=== PATIENT | female | born 1945 | race African-American/Black ===

== ENCOUNTER 2017-10-30 16:47 | Emergency (ER) | payer MEDICARE, MEDICAID ==
[~2017-10-30] VITALS: Ht 170.2 cm; Wt 99.0 kg
[~2017-10-30 16:47] MED LIST: ASPI-1159 PO; GLYB5TAB7 PO; MELO-105 PO; METF500T PO; SIMV20TA6 PO; SOTA80TA PO
[2017-10-30 16:53] VITALS: BP 140/90
[2017-10-30 18:42] LABS: HEMATOCRIT. 39.7 % (36.0-48.0); HEMOGLOBIN. 12.7 g/dL (12.0-16.0); MEAN CORPUSCULAR HEMOGLOBIN 24.7 pg (28.0-32.0); MEAN CORPUSCULAR VOLUME 77.1 fL (81.0-99.0); MEAN PLATELET VOLUME 9.1 fl (7.4-10.4); PLATELET 208 x1000/uL (130-400); RED BLOOD CELL COUNT 5.15 mill/uL (4.2-5.4); RED CELL DISTRIBUTION WIDTH 16.6 % (11.6-14.6)
[2017-10-30 18:45] LABS: CHLORIDE 107 mEq/L (98-107)
[2017-10-30 19:03] LABS: PLATELET ESTIMATE NORMAL
== END 2017-10-30 19:31 | disposition home or self-care (01) ==
LOC: ER 16:47
DX: R60.0 Localized edema (principal); E78.00 Pure hypercholesterolemia, unspecified; E11.9 Type 2 diabetes mellitus without complications; I11.0 Hypertensive heart disease with heart failure; Z88.0 Allergy status to penicillin
CPT/HCPCS: 36415; 80053; 82962; 85025; 93971; 99285

== ENCOUNTER 2021-01-08 10:06 | Inpatient (IN) | payer MEDICARE, MEDICAID ==
[~2021-01-08] VITALS: Ht 170.2 cm; Wt 95.9 kg
[~2021-01-08 10:06] MED LIST changes: -ASPI-1159 PO; +ASPI-1497 PO; +SIMV-43 PO; -SIMV20TA6 PO
[2021-01-08] MEDS ORDERED: KETOROLAC 30MG/ML VIAL IV STA (10:35)
[2021-01-08] MEDS ORDERED: CLINDAMYCIN 600 MG in DEXTROSE 5% WATER 50 ML IV ONE (10:45)
[2021-01-08] MEDS ORDERED: METRONIDAZOLE 500 MG PREMIX 100 ML IV ONE (10:45)
[2021-01-08] MEDS ORDERED: CLINDAMYCIN 600MG PREMIX 50 ML IV NR (11:00)
[2021-01-08 11:51] LABS: BASOPHILS % 0.6 % (0.0-2.0); CHLORIDE 103 mEq/L (98-107); EOSINOPHILS % 0.3 % (0.0-5.0); HEMOGLOBIN. 13.2 g/dL (12.0-16.0); LYMPHOCYTES % 11.4 % (20.0-50.0); MEAN CORPUSCULAR HEMOGLOBIN 25.4 pg (28.0-32.0); MEAN CORPUSCULAR VOLUME 77.2 fL (81.0-99.0); MEAN PLATELET VOLUME 9.3 fl (7.4-10.4); MONOCYTES % 11.7 % (2.0-8.0); PLATELET 276 x1000/uL (130-400); RED BLOOD CELL COUNT 5.18 mill/uL (4.2-5.4); RED CELL DISTRIBUTION WIDTH 15.8 % (11.6-14.6)
[2021-01-08 11:57] LABS: INR 1.1; PARTIAL THROMBOPLASTIN TIME 29.3 sec (23.4-31.0); PROTHROMBIN TIME 11.4 sec (9.6-11.0)
[2021-01-08] MEDS ORDERED: ACETAMINOPHEN 325MG TABLET PO PRN (14:30)
[2021-01-08] MEDS ORDERED: DEXTROSE 50% WATER 50ML SYRINGE IV PRN (14:30)
[2021-01-08] MEDS ORDERED: ONDANSETRON HCL 4MG/2ML INJ IV PRN (14:30)
[2021-01-08] MEDS ORDERED: VANCOMYCIN 1500MG in DEXTROSE 5% WATER 250ML IV NR ×2 (15:00→18:30)
[2021-01-08] MEDS ORDERED: IOHEXOL-300 100 ML BOTTLE ONE (15:22)
[2021-01-08 16:00] VITALS: BP 109/62
[2021-01-08] MEDS ORDERED: SODIUM CHLORIDE 0.9% 1,000 ML IV ONE (16:00)
[2021-01-08 16:41] VITALS: BP 109/62
[2021-01-08] MEDS: BLOOD SUGAR DIAGNOSTIC STRIP TEST SCH ×2 (16:49→20:38)
[2021-01-08] MEDS: LEVOFLOXACIN 500MG PREMIX 100 ML IV SCH (17:43)
[2021-01-08 20:00] VITALS: BP 125/94
[2021-01-08] MEDS: ATORVASTATIN CALCIUM 20MG TABLET PO SCH (20:39)
[2021-01-08] MEDS: ENOXAPARIN 30MG/0.3ML SYR SUBCUT SCH (20:39)
[2021-01-08] MEDS: SOTALOL HCL 80MG TABLET PO SCH (21:40)
[2021-01-08] MEDS: INSULIN LISPRO 100 UNITS/ML SUBCUT SCH (21:40)
[2021-01-09] VITALS: BP 101/68
[2021-01-09 04:00] VITALS: BP 108/39
[2021-01-09] MEDS: BLOOD SUGAR DIAGNOSTIC STRIP TEST SCH ×4 (06:07→20:54)
[2021-01-09] MEDS: INSULIN LISPRO 100 UNITS/ML SUBCUT SCH ×4 (06:07→21:00)
[2021-01-09 06:42] LABS: HEMATOCRIT. 38.5 % (36.0-48.0); HEMOGLOBIN. 12.2 g/dL (12.0-16.0); MEAN CORPUSCULAR VOLUME 78.8 fL (81.0-99.0); MEAN PLATELET VOLUME 9.4 fl (7.4-10.4); PLATELET 270 x1000/uL (130-400); RED BLOOD CELL COUNT 4.88 mill/uL (4.2-5.4)
[2021-01-09 07:59] LABS: CHLORIDE 104 mEq/L (98-107)
[2021-01-09 08:00] VITALS: BP 125/60
[2021-01-09] MEDS: ENOXAPARIN 30MG/0.3ML SYR SUBCUT SCH ×2 (08:19→20:33)
[2021-01-09] MEDS: ASPIRIN 81MG TABLET PO SCH (08:19)
[2021-01-09] MEDS: SOTALOL HCL 80MG TABLET PO SCH ×2 (08:19→20:32)
[2021-01-09] MEDS: TRAMADOL 50MG TABLET PO PRN (11:09)
[2021-01-09 12:00] VITALS: BP 120/60
[2021-01-09 14:17] LABS: PLATELET ESTIMATE NORMAL
[2021-01-09] MEDS ORDERED: VANCOMYCIN 1 G PREMIX 200 ML IV SCH (15:00)
[2021-01-09 16:00] VITALS: BP 115/59
[2021-01-09] MEDS ORDERED: TETANUS AND DIPHTHERIA TOX/PF 0.5ML SYR (ADULT) IM ONE (16:30)
[2021-01-09] MEDS: LEVOFLOXACIN 500MG PREMIX 100 ML IV SCH (17:50)
[2021-01-09] MEDS: METRONIDAZOLE 500MG TABLET PO SCH (17:50)
[2021-01-09 20:00] VITALS: BP 134/74
[2021-01-09] MEDS: ATORVASTATIN CALCIUM 20MG TABLET PO SCH (20:32)
[2021-01-10] VITALS: BP 123/64
[2021-01-10 04:00] VITALS: BP 121/94
[2021-01-10 06:22] LABS: CHLORIDE 107 mEq/L (98-107)
[2021-01-10] MEDS: BLOOD SUGAR DIAGNOSTIC STRIP TEST SCH ×4 (06:30→20:11)
[2021-01-10] MEDS: INSULIN LISPRO 100 UNITS/ML SUBCUT SCH ×4 (06:37→20:11)
[2021-01-10 06:46] LABS: HEMATOCRIT. 36.7 % (36.0-48.0); MEAN CORPUSCULAR HEMOGLOBIN 25.3 pg (28.0-32.0); MEAN CORPUSCULAR VOLUME 77.1 fL (81.0-99.0); MEAN PLATELET VOLUME 9.4 fl (7.4-10.4); PLATELET 303 x1000/uL (130-400); RED BLOOD CELL COUNT 4.76 mill/uL (4.2-5.4); RED CELL DISTRIBUTION WIDTH 15.8 % (11.6-14.6)
[2021-01-10 08:00] VITALS: BP 123/65
[2021-01-10] MEDS ORDERED: NALOXONE HCL 0.4MG/ML VIAL IV PRN (08:15)
[2021-01-10] MEDS: SOTALOL HCL 80MG TABLET PO SCH ×2 (09:00→20:10)
[2021-01-10] MEDS: METRONIDAZOLE 500MG TABLET PO SCH ×2 (09:27→20:10)
[2021-01-10] MEDS: ASPIRIN 81MG TABLET PO SCH (09:27)
[2021-01-10] MEDS: ENOXAPARIN 30MG/0.3ML SYR SUBCUT SCH ×2 (09:28→20:12)
[2021-01-10 12:00] VITALS: BP 127/66
[2021-01-10 13:18] LABS: PLATELET ESTIMATE 1+
[2021-01-10] MEDS: TRAMADOL 50MG TABLET PO PRN (14:00)
[2021-01-10 16:00] VITALS: BP 108/64
[2021-01-10] MEDS: LEVOFLOXACIN 500MG PREMIX 100 ML IV SCH (16:44)
[2021-01-10 20:00] VITALS: BP 101/98
[2021-01-10] MEDS: ATORVASTATIN CALCIUM 20MG TABLET PO SCH (20:10)
[2021-01-10] MEDS: INSULIN GLARGINE UD 100 UNITS/ML SYR SUBCUT SCH (22:19)
[2021-01-11] VITALS: BP 106/86
[2021-01-11 04:00] VITALS: BP 121/57
[2021-01-11] MEDS: INSULIN LISPRO 100 UNITS/ML SUBCUT SCH ×4 (07:10→20:23)
[2021-01-11 08:00] VITALS: BP 113/56
[2021-01-11] MEDS: ASPIRIN 81MG TABLET PO SCH (09:16)
[2021-01-11] MEDS: METRONIDAZOLE 500MG TABLET PO SCH ×2 (09:16→20:22)
[2021-01-11] MEDS: SOTALOL HCL 80MG TABLET PO SCH ×2 (09:16→20:23)
[2021-01-11] MEDS: ENOXAPARIN 30MG/0.3ML SYR SUBCUT SCH ×2 (09:17→20:23)
[2021-01-11 09:35] LABS: BASOPHILS % 0.8 % (0.0-2.0); EOSINOPHILS % 0.6 % (0.0-5.0); HEMATOCRIT. 38.9 % (36.0-48.0); LYMPHOCYTES % 30.4 % (20.0-50.0); MEAN CORPUSCULAR HEMOGLOBIN 25.5 pg (28.0-32.0); MEAN CORPUSCULAR VOLUME 76.1 fL (81.0-99.0); MEAN PLATELET VOLUME 8.8 fl (7.4-10.4); NEUTROPHILS % 55.2 % (40.0-76.0); PLATELET 384 x1000/uL (130-400); RED BLOOD CELL COUNT 5.11 mill/uL (4.2-5.4); RED CELL DISTRIBUTION WIDTH 15.9 % (11.6-14.6)
[2021-01-11 09:45] LABS: CHLORIDE 106 mEq/L (98-107)
[2021-01-11 12:00] VITALS: BP 118/68
[2021-01-11] MEDS: BLOOD SUGAR DIAGNOSTIC STRIP TEST SCH ×3 (12:23→20:23)
[2021-01-11 16:00] VITALS: BP 110/56
[2021-01-11] MEDS: LEVOFLOXACIN 500MG PREMIX 100 ML IV SCH (17:33)
[2021-01-11 20:00] VITALS: BP 129/67
[2021-01-11] MEDS: ATORVASTATIN CALCIUM 20MG TABLET PO SCH (20:22)
[2021-01-11] MEDS: INSULIN GLARGINE UD 100 UNITS/ML SYR SUBCUT SCH (21:39)
[2021-01-12] VITALS: BP 125/60
[2021-01-12 04:00] VITALS: BP 135/69
[2021-01-12] MEDS: BLOOD SUGAR DIAGNOSTIC STRIP TEST SCH ×2 (06:27→11:40)
[2021-01-12] MEDS: INSULIN LISPRO 100 UNITS/ML SUBCUT SCH ×2 (06:27→12:49)
[2021-01-12 08:00] VITALS: BP 129/61
[2021-01-12] MEDS: SOTALOL HCL 80MG TABLET PO SCH (08:57)
[2021-01-12] MEDS: ASPIRIN 81MG TABLET PO SCH (08:57)
[2021-01-12] MEDS: METRONIDAZOLE 500MG TABLET PO SCH (08:57)
[2021-01-12] MEDS: ENOXAPARIN 30MG/0.3ML SYR SUBCUT SCH (08:57)
[2021-01-12] MEDS ORDERED: LEVOFLOXACIN 500MG TABLET PO SCH (11:00)
[2021-01-12 12:00] VITALS: BP 125/69
[2021-01-12] MEDS ORDERED: METR-167 PO (12:26)
== END 2021-01-12 16:25 | disposition home health service (06) | DRG 603 ==
LOC: EDBEDREQ 10:50 → ER 11:00 → 7EST 13:10 → EDBEDREQ 13:16 → EDBEDREQSVC 13:16 → ENRESERV 13:53
PROVIDERS: ADMIT Specialist; ATTEND Specialist
DX: L02.214 Cutaneous abscess of groin (principal); E11.9 Type 2 diabetes mellitus without complications; I25.10 Atherosclerotic heart disease of native coronary artery without angina pectoris; I48.0 Paroxysmal atrial fibrillation; K76.0 Fatty (change of) liver, not elsewhere classified; E78.5 Hyperlipidemia, unspecified; I10 Essential (primary) hypertension; J44.9 Chronic obstructive pulmonary disease, unspecified; B96.4 Proteus (mirabilis) (morganii) as the cause of diseases classified elsewhere; E66.9 Obesity, unspecified; F17.200 Nicotine dependence, unspecified, uncomplicated; N76.89 Other specified inflammation of vagina and vulva; B95.2 Enterococcus as the cause of diseases classified elsewhere; B96.20 Unspecified Escherichia coli [E. coli] as the cause of diseases classified elsewhere; I25.2 Old myocardial infarction; Z82.49 Family history of ischemic heart disease and other diseases of the circulatory system; Z87.11 Personal history of peptic ulcer disease; Z88.0 Allergy status to penicillin; Z79.899 Other long term (current) drug therapy; Z79.82 Long term (current) use of aspirin; Z79.84 Long term (current) use of oral hypoglycemic drugs; Z71.6 Tobacco abuse counseling; Z68.33 Body mass index [BMI] 33.0-33.9, adult
CPT/HCPCS: 36415; 74177; 80048; 80053; 82962; 83036; 85025; 87070; 87077; 87186; 90714; 93970; 99285; C1893; J1650; J1815; J1885; J1956; J3370; J3490; J7030; J7040; J7060; Q9967

== ENCOUNTER 2022-08-23 22:41 | Inpatient (IN) | payer MEDICARE, MEDICAID ==
[~2022-08-23] VITALS: Ht 170.2 cm; Wt 99.3 kg
[~2022-08-23 22:41] MED LIST changes: -MELO-105 PO
[2022-08-23 23:36] LABS: BASOPHILS % 1.3 % (0.0-2.0); EOSINOPHILS % 0.1 % (0.0-5.0); HEMATOCRIT. 42.5 % (36.0-48.0); HEMOGLOBIN. 13.9 g/dL (12.0-16.0); LYMPHOCYTES % 30.4 % (20.0-50.0); MEAN CORPUSCULAR HEMOGLOBIN 25.6 pg (28.0-32.0); MEAN CORPUSCULAR VOLUME 78.5 fL (81.0-99.0); MONOCYTES % 8.2 % (2.0-8.0); PLATELET 272 x1000/uL (130-400); RED BLOOD CELL COUNT 5.42 mill/uL (4.2-5.4); RED CELL DISTRIBUTION WIDTH 16.3 % (11.6-14.6)
[2022-08-23 23:45] LABS: CHLORIDE 105 mEq/L (98-107)
[2022-08-24] MEDS ORDERED: SODIUM CHLORIDE 0.9% 1,000 ML IV ONE (01:45)
[2022-08-24] MEDS ORDERED: LEVOFLOXACIN 750MG PREMIX 150 ML IV ONE (01:45)
[2022-08-24] MEDS ORDERED: IPRATROPIUM/ALBUTEROL 0.5-3(2.5)MG/3ML NEB HHN PRN (09:45)
[2022-08-24] MEDS ORDERED: ONDANSETRON HCL 4MG/2ML INJ IV PRN (09:45)
[2022-08-24] MEDS ORDERED: ACETAMINOPHEN 325MG TABLET PO PRN (09:45)
[2022-08-24] MEDS ORDERED: CLONIDINE 0.1MG TABLET PO PRN (09:45)
[2022-08-24] MEDS ORDERED: DIPHENHYDRAMINE 50MG/ML VIAL IV PRN (09:45)
[2022-08-24] MEDS ORDERED: ATOR20TA65 PO (13:06)
[2022-08-24] MEDS ORDERED: SITA1TAB6 MT (13:07)
[2022-08-24] MEDS ORDERED: GLIM1TAB PO (13:08)
[2022-08-24] MEDS ORDERED: FERR325T30 PO (13:09)
[2022-08-24] MEDS ORDERED: TRAM50TA3 PO (13:12)
[2022-08-24] MEDS ORDERED: DEXTROSE 50% WATER 50ML SYRINGE IV PRN (13:45)
[2022-08-24 13:47] VITALS: BP 159/89
[2022-08-24] MEDS ORDERED: *PATIENT'S OWN MEDICATION STORAGE XX SCH (15:30)
[2022-08-24 16:00] VITALS: BP 171/75
[2022-08-24] MEDS ORDERED: LOSARTAN POTASSIUM 100 MG TABLET PO NR (16:30)
[2022-08-24] MEDS ORDERED: HYDRALAZINE HCL 25MG TABLET PO PRN (16:30)
[2022-08-24] MEDS: AMLODIPINE 10MG TABLET PO SCH (16:32)
[2022-08-24] MEDS: BLOOD SUGAR DIAGNOSTIC STRIP TEST SCH ×2 (16:40→21:00)
[2022-08-24] MEDS: INSULIN LISPRO 100 UNITS/ML SUBCUT SCH ×2 (17:10→23:03)
[2022-08-24 17:25] LABS: T4 FREE 1.04 ng/dL (0.76-1.46)
[2022-08-24 20:00] VITALS: BP_SYST 121; BP_SYST 156; BP_DIAS 64; BP_DIAS 74
[2022-08-25] VITALS: BP 136/79
[2022-08-25] MEDS: SENNOSIDES 8.6MG TABLET PO PRN (00:37)
[2022-08-25 02:46] LABS: CLARITY URINE CLEAR (CLEAR); COLOR URINE YELLOW (YELLOW); KETONES URINE 1+ (NEGATIVE); LEUKOCYTE ESTERASE URINE TRACE (NEGATIVE); NITRITE URINE NEGATIVE (NEGATIVE); OCCULT BLOOD URINE NEGATIVE (NEGATIVE); PH URINE 6.5 (4.5-8.0); PROTEIN URINE NEGATIVE (NEGATIVE); SPECIFIC GRAVITY URINE 1.016 (1.005-1.030); UROBILINOGEN URINE 0.2 E.U./dL (0.2-1.0)
[2022-08-25 04:00] VITALS: BP 145/78
[2022-08-25] MEDS: BLOOD SUGAR DIAGNOSTIC STRIP TEST SCH ×4 (06:32→21:00)
[2022-08-25] MEDS: INSULIN LISPRO 100 UNITS/ML SUBCUT SCH ×4 (06:57→22:08)
[2022-08-25 07:27] LABS: BASOPHILS % 0.6 % (0.0-2.0); EOSINOPHILS % 0.3 % (0.0-5.0); HEMATOCRIT. 43.6 % (36.0-48.0); HEMOGLOBIN. 14.4 g/dL (12.0-16.0); LYMPHOCYTES % 33.1 % (20.0-50.0); MEAN CORPUSCULAR HEMOGLOBIN 25.9 pg (28.0-32.0); MEAN CORPUSCULAR VOLUME 78.1 fL (81.0-99.0); MEAN PLATELET VOLUME 9.4 fl (7.4-10.4); MONOCYTES % 9.6 % (2.0-8.0); NEUTROPHILS % 56.4 % (40.0-76.0); PLATELET 242 x1000/uL (130-400); RED BLOOD CELL COUNT 5.59 mill/uL (4.2-5.4); RED CELL DISTRIBUTION WIDTH 16.1 % (11.6-14.6)
[2022-08-25 07:29] LABS: CHLORIDE 102 mEq/L (98-107)
[2022-08-25 08:00] VITALS: BP 148/84
[2022-08-25] MEDS: LOSARTAN POTASSIUM 100 MG TABLET PO SCH (08:25)
[2022-08-25] MEDS: AMLODIPINE 10MG TABLET PO SCH (08:26)
[2022-08-25 12:00] VITALS: BP 146/84
[2022-08-25] MEDS ORDERED: POTASSIUM CHLORIDE 20MEQ/PACKET PO NR (13:15)
[2022-08-25 16:00] VITALS: BP 160/82
[2022-08-25] MEDS: DOCUSATE SODIUM 100MG CAPSULE PO SCH (16:39)
[2022-08-25 20:00] VITALS: BP 139/86
[2022-08-26] VITALS (7 sets, daily range): BP systolic 120–144; BP diastolic 81–92
[2022-08-26 05:40] LABS: BASOPHILS % 0.7 % (0.0-2.0); EOSINOPHILS % 0.2 % (0.0-5.0); HEMATOCRIT. 46.7 % (36.0-48.0); HEMOGLOBIN. 15.6 g/dL (12.0-16.0); LYMPHOCYTES % 26.7 % (20.0-50.0); MEAN CORPUSCULAR HEMOGLOBIN 25.9 pg (28.0-32.0); MEAN CORPUSCULAR VOLUME 77.5 fL (81.0-99.0); MEAN PLATELET VOLUME 9.6 fl (7.4-10.4); NEUTROPHILS % 62.4 % (40.0-76.0); PLATELET 267 x1000/uL (130-400); RED BLOOD CELL COUNT 6.03 mill/uL (4.2-5.4); RED CELL DISTRIBUTION WIDTH 16.5 % (11.6-14.6)
[2022-08-26 05:59] LABS: CHLORIDE 103 mEq/L (98-107)
[2022-08-26] MEDS: BLOOD SUGAR DIAGNOSTIC STRIP TEST SCH ×4 (06:40→21:28)
[2022-08-26] MEDS: INSULIN LISPRO 100 UNITS/ML SUBCUT SCH ×4 (07:10→21:37)
[2022-08-26] MEDS: DOCUSATE SODIUM 100MG CAPSULE PO SCH ×2 (09:26→17:41)
[2022-08-26] MEDS: LOSARTAN POTASSIUM 100 MG TABLET PO SCH (09:26)
[2022-08-26] MEDS: AMLODIPINE 10MG TABLET PO SCH (09:27)
[2022-08-26] MEDS: ASPIRIN 81MG EC TABLET PO SCH (12:36)
[2022-08-26 17:07] LABS: PHOSPHORUS 2.7 mg/dL (2.5-4.9)
[2022-08-26 17:30] LABS: VITAMIN B12 SERUM 509 pg/mL (211-911)
[2022-08-26] MEDS: ATORVASTATIN CALCIUM 20MG TABLET PO SCH (21:28)
[2022-08-26] MEDS: POLYETHYLENE GLYCOL 3350 (17GM) 1 DOSE PACK PO SCH (21:28)
[2022-08-27] VITALS (7 sets, daily range): BP systolic 105–155; BP diastolic 64–113
[2022-08-27] MEDS: BLOOD SUGAR DIAGNOSTIC STRIP TEST SCH ×4 (05:49→21:45)
[2022-08-27] MEDS: INSULIN LISPRO 100 UNITS/ML SUBCUT SCH ×4 (05:53→21:44)
[2022-08-27 06:27] LABS: BASOPHILS % 0.4 % (0.0-2.0); EOSINOPHILS % 0.5 % (0.0-5.0); HEMATOCRIT. 45.3 % (36.0-48.0); HEMOGLOBIN. 15.2 g/dL (12.0-16.0); LYMPHOCYTES % 27.3 % (20.0-50.0); MEAN CORPUSCULAR HEMOGLOBIN 26.1 pg (28.0-32.0); MEAN CORPUSCULAR VOLUME 77.8 fL (81.0-99.0); MEAN PLATELET VOLUME 9.8 fl (7.4-10.4); MONOCYTES % 11.1 % (2.0-8.0); NEUTROPHILS % 60.7 % (40.0-76.0); PLATELET 242 x1000/uL (130-400); RED BLOOD CELL COUNT 5.82 mill/uL (4.2-5.4); RED CELL DISTRIBUTION WIDTH 16.3 % (11.6-14.6)
[2022-08-27 08:20] LABS: CHLORIDE 103 mEq/L (98-107)
[2022-08-27] MEDS: LOSARTAN POTASSIUM 100 MG TABLET PO SCH (09:00)
[2022-08-27] MEDS: AMLODIPINE 10MG TABLET PO SCH ×2 (09:00→13:12)
[2022-08-27] MEDS: POLYETHYLENE GLYCOL 3350 (17GM) 1 DOSE PACK PO SCH (09:36)
[2022-08-27] MEDS: ASPIRIN 81MG EC TABLET PO SCH (09:36)
[2022-08-27] MEDS: DOCUSATE SODIUM 100MG CAPSULE PO SCH ×2 (09:36→17:06)
[2022-08-27] MEDS: SOTALOL HCL 80MG TABLET PO SCH ×2 (17:06→21:45)
[2022-08-27] MEDS: ATORVASTATIN CALCIUM 20MG TABLET PO SCH (21:44)
[2022-08-27] MEDS: SENNOSIDES 8.6MG TABLET PO PRN (21:44)
[2022-08-28] VITALS (9 sets, daily range): BP systolic 100–140; BP diastolic 64–81
[2022-08-28] MEDS: BLOOD SUGAR DIAGNOSTIC STRIP TEST SCH ×3 (05:40→16:40)
[2022-08-28] MEDS: SOTALOL HCL 80MG TABLET PO SCH (05:40)
[2022-08-28] MEDS: INSULIN LISPRO 100 UNITS/ML SUBCUT SCH ×3 (05:52→17:10)
[2022-08-28 07:06] LABS: BASOPHILS % 0.6 % (0.0-2.0); EOSINOPHILS % 0.8 % (0.0-5.0); HEMATOCRIT. 46.8 % (36.0-48.0); HEMOGLOBIN. 15.2 g/dL (12.0-16.0); LYMPHOCYTES % 31.1 % (20.0-50.0); MEAN CORPUSCULAR HEMOGLOBIN 25.7 pg (28.0-32.0); MEAN CORPUSCULAR VOLUME 79.4 fL (81.0-99.0); MONOCYTES % 10.6 % (2.0-8.0); NEUTROPHILS % 56.9 % (40.0-76.0); PLATELET 232 x1000/uL (130-400); RED BLOOD CELL COUNT 5.89 mill/uL (4.2-5.4); RED CELL DISTRIBUTION WIDTH 16.4 % (11.6-14.6)
[2022-08-28 08:28] LABS: CHLORIDE 103 mEq/L (98-107)
[2022-08-28] MEDS: ASPIRIN 81MG EC TABLET PO SCH (09:22)
[2022-08-28] MEDS: AMLODIPINE 10MG TABLET PO SCH ×2 (09:22→09:25)
[2022-08-28] MEDS: LOSARTAN POTASSIUM 100 MG TABLET PO SCH ×2 (09:22→09:25)
[2022-08-28] MEDS: DOCUSATE SODIUM 100MG CAPSULE PO SCH ×2 (09:22→18:05)
[2022-08-28] MEDS: POLYETHYLENE GLYCOL 3350 (17GM) 1 DOSE PACK PO SCH (09:23)
[2022-08-28] MEDS ORDERED: CLOPIDOGREL 75MG TABLET PO NR (10:15)
[2022-08-28] MEDS ORDERED: LOSARTAN POTASSIUM 25 MG TABLET PO SCH (17:00)
[2022-08-28] MEDS ORDERED: AMLODIPINE 2.5MG TABLET PO SCH (17:00)
[2022-08-28] MEDS ORDERED: SOTALOL HCL 80MG TABLET PO SCH (21:00)
[2022-08-29] MEDS ORDERED: CLOPIDOGREL 75MG TABLET PO SCH (09:00)
[2022-09-05] MEDS ORDERED: ASPI-1406 PO (14:09)
[2022-09-05] MEDS ORDERED: LOSA25TA3 PO (14:09)
[2022-09-05] MEDS ORDERED: AMLO2.5T45 PO (14:09)
[2022-09-05] MEDS ORDERED: HYDR-4134 PO (14:09)
[2022-09-05] MEDS ORDERED: CLOP-31 PO (14:09)
== END 2022-08-28 20:08 | DRG 66 ==
LOC: ER 22:41 → MICUSO 08-24 01:32 → 7EST 08-24 10:23
PROVIDERS: ADMIT Family Medicine Adult Medicine; ATTEND Family Medicine Adult Medicine
DX: I63.541 Cerebral infarction due to unspecified occlusion or stenosis of right cerebellar artery (principal); G90.8 Other disorders of autonomic nervous system; H57.11 Ocular pain, right eye; E66.9 Obesity, unspecified; I10 Essential (primary) hypertension; Z20.822 Contact with and (suspected) exposure to COVID-19; E11.9 Type 2 diabetes mellitus without complications; I25.10 Atherosclerotic heart disease of native coronary artery without angina pectoris; Z88.0 Allergy status to penicillin; Z82.49 Family history of ischemic heart disease and other diseases of the circulatory system; Z79.84 Long term (current) use of oral hypoglycemic drugs; I25.2 Old myocardial infarction; Z85.3 Personal history of malignant neoplasm of breast; Z87.11 Personal history of peptic ulcer disease; Z86.73 Personal history of transient ischemic attack (TIA), and cerebral infarction without residual deficits
CPT/HCPCS: 36415; 70496; 70498; 70551; 71045; 80048; 80053; 80061; 81003; 82607; 82746; 82962; 83036; 83605; 83735; 84100; 84439; 84443; 84481; 84484; 85025; 87426; 93005; 93306; 93970; 97162; 97166; 99285; J1815; J1956; J7030

== ENCOUNTER → 2022-12-31 | Outpatient (CLI) | payer MEDICARE, MEDICAID ==
[~2022-12-31] MED LIST changes: +AMLO2.5T45 PO; +ASPI-1406 PO; -ASPI-1497 PO; +CLOP-31 PO; +FERR325T30 PO; +GLIM1TAB PO; +HYDR-4134 PO; +LOSA25TA3 PO; -SIMV-43 PO; +SITA1TAB6 MT; -SOTA80TA PO; +TRAM50TA3 PO
== END | disposition home or self-care (01) ==
LOC: RAD 08:05
PROVIDERS: ATTEND Surgery
DX: C50.512 Malignant neoplasm of lower-outer quadrant of left female breast (principal); M79.89 Other specified soft tissue disorders; Z90.11 Acquired absence of right breast and nipple
CPT/HCPCS: 77065

== ENCOUNTER 2023-04-09 15:36 | Inpatient (IN) | payer MEDICARE, MEDICAID ==
[~2023-04-09] VITALS: Ht 170.2 cm; Wt 91.6 kg
[~2023-04-09 15:36] MED LIST changes: +LOSA-412 PO; -LOSA25TA3 PO
[2023-04-09 16:57] LABS: BASOPHILS % 0.8 % (0.0-2.0); EOSINOPHILS % 0.9 % (0.0-5.0); HEMATOCRIT. 46.6 % (36.0-48.0); HEMOGLOBIN. 14.6 g/dL (12.0-16.0); LYMPHOCYTES % 30.2 % (20.0-50.0); MEAN CORPUSCULAR HEMOGLOBIN 25.3 pg (28.0-32.0); MEAN CORPUSCULAR HGB CONC 31.4 g/dL (31.0-37.0); MEAN CORPUSCULAR VOLUME 80.5 fL (81.0-99.0); MEAN PLATELET VOLUME 9.3 fl (7.4-10.4); MONOCYTES % 8.1 % (2.0-8.0); PLATELET 230 x1000/uL (130-400); RED BLOOD CELL COUNT 5.78 mill/uL (4.2-5.4); RED CELL DISTRIBUTION WIDTH 17.2 % (11.6-14.6); WHITE BLOOD COUNT 6.6 x1000/uL (4.5-11.0)
[2023-04-09 17:27] LABS: ALANINE AMINOTRANSFERASE 14 IU/L (10-49); ALBUMIN 4.5 g/dL (3.2-4.8); ASPARTATE AMINOTRANSFERASE 18 IU/L (<34); BILIRUBIN TOTAL 0.4 mg/dL (0.1-1.0); CARBON DIOXIDE 25 mEq/L (21-32); CHLORIDE 100 mEq/L (98-107); CREATININE 1.1 mg/dL (0.6-1.0); POTASSIUM 4.3 mEq/L (3.5-5.1); PROTEIN TOTAL 7.3 g/dL (6.0-8.3); SODIUM 134 mEq/L (136-145); UREA NITROGEN BLOOD 14 mg/dL (9-23)
[2023-04-09 17:36] LABS: GLUCOSE 418 mg/dL (70-105)
[2023-04-09] MEDS ORDERED: LACTATED RINGERS 1,000 ML IV SCH (18:00)
[2023-04-09] MEDS ORDERED: INSULIN REGULAR (HUMULIN R) 300UNITS/3ML VIAL SUBCUT ONE (18:00)
[2023-04-09] MEDS ORDERED: *PATIENT'S OWN MEDICATION STORAGE XX SCH (23:30)
[2023-04-09] MEDS ORDERED: SIMV-43 MT (23:32)
[2023-04-09] MEDS ORDERED: LETR2.5T7 MT (23:32)
[2023-04-09] MEDS ORDERED: EMPA10TA MT (23:32)
[2023-04-09] MEDS ORDERED: SOTA80TA MT (23:32)
[2023-04-09] MEDS ORDERED: ATOR20TA65 MT (23:32)
[2023-04-10] VITALS: BP 142/73; PULSE 67; RESP 18; TEMP 96.1
[2023-04-10] MEDS ORDERED: SITA1TAB6 MT (00:20)
[2023-04-10] MEDS ORDERED: GUAIFENESIN 200MG/10ML SUGAR FREE UDC PO PRN (02:15)
[2023-04-10] MEDS ORDERED: DEXTROSE 50% WATER 50ML SYRINGE IV PRN (02:15)
[2023-04-10] MEDS ORDERED: LACTATED RINGERS 1,000 ML IV ONE (02:15)
[2023-04-10] MEDS ORDERED: DOCUSATE SODIUM 100MG CAPSULE PO PRN (02:15)
[2023-04-10] MEDS ORDERED: ONDANSETRON HCL 4MG/2ML INJ IV PRN (02:15)
[2023-04-10] MEDS ORDERED: IPRATROPIUM/ALBUTEROL 0.5-3(2.5)MG/3ML NEB HHN PRN (02:15)
[2023-04-10] MEDS ORDERED: MAGNESIUM/ALUMINUM HYDROXIDE/SIMETHICONE 30ML UDC PO PRN (02:15)
[2023-04-10] MEDS ORDERED: ACETAMINOPHEN 650MG/20.3ML UDC GT PRN (02:15)
[2023-04-10] MEDS ORDERED: CLONIDINE 0.1MG TABLET PO PRN (02:15)
[2023-04-10] MEDS ORDERED: HYDROCODONE/ACETAMINOPHEN 5/325MG TABLET PO PRN (02:15)
[2023-04-10 04:00] VITALS: BP 145/73; PULSE 76; RESP 18; TEMP 97.1
[2023-04-10] MEDS: BLOOD SUGAR DIAGNOSTIC STRIP TEST SCH ×4 (06:36→20:41)
[2023-04-10] MEDS: INSULIN LISPRO 100 UNITS/ML SUBCUT SCH ×4 (06:52→20:47)
[2023-04-10 08:00] VITALS: BP 130/76; PULSE 70; RESP 18; TEMP 97.5
[2023-04-10] MEDS: CLOPIDOGREL 75MG TABLET PO SCH (09:00)
[2023-04-10] MEDS: ASPIRIN 81MG EC TABLET PO SCH (10:00)
[2023-04-10] MEDS: LOSARTAN 25 MG TABLET PO SCH ×2 (10:01→17:52)
[2023-04-10] MEDS: AMLODIPINE 2.5MG TABLET PO SCH ×2 (10:01→20:48)
[2023-04-10] MEDS: LETROZOLE 2.5MG TABLET PO SCH (10:01)
[2023-04-10] MEDS: PANTOPRAZOLE SODIUM 40 MG/VIAL IV SCH (10:02)
[2023-04-10] MEDS: SOTALOL HCL 80MG TABLET PO SCH ×2 (10:02→17:53)
[2023-04-10] MEDS: ENOXAPARIN 40MG/0.4ML SYR SUBCUT SCH (10:03)
[2023-04-10 12:00] VITALS: BP 128/59; PULSE 68; RESP 19; TEMP 98.7
[2023-04-10 16:00] VITALS: BP 113/60; PULSE 72; RESP 18; TEMP 97.7
[2023-04-10 20:00] VITALS: BP_SYST 121; BP_SYST 132; BP_DIAS 62; BP_DIAS 70; PULSE 18; PULSE 56; RESP 18; TEMP 94.8; TEMP 98.3
[2023-04-10] MEDS: ATORVASTATIN CALCIUM 20MG TABLET PO SCH (20:40)
[2023-04-10] MEDS ORDERED: FAMOTIDINE 20MG TABLET PO SCH (21:00)
[2023-04-11] VITALS (7 sets, daily range): BP systolic 105–140; BP diastolic 54–73; PULSE 53–70; RESP 18–20; TEMP 96.7–98.6
[2023-04-11] MEDS: BLOOD SUGAR DIAGNOSTIC STRIP TEST SCH ×4 (06:55→22:00)
[2023-04-11 07:54] LABS: ALANINE AMINOTRANSFERASE 11 IU/L (10-49); ALBUMIN 3.9 g/dL (3.2-4.8); ASPARTATE AMINOTRANSFERASE 16 IU/L (<34); BILIRUBIN TOTAL 0.4 mg/dL (0.1-1.0); CALCIUM 10.5 mg/dL (8.7-10.4); CARBON DIOXIDE 27 mEq/L (21-32); CHLORIDE 106 mEq/L (98-107); CHOLESTEROL 121 mg/dL (<200); CREATININE 0.9 mg/dL (0.6-1.0); GLUCOSE 212 mg/dL (70-105); HDL CHOLESTEROL 50 mg/dL (>65); LDL CHOLESTEROL 55 mg/dL (5-100); POTASSIUM 4.3 mEq/L (3.5-5.1); PROTEIN TOTAL 6.3 g/dL (6.0-8.3); SODIUM 141 mEq/L (136-145); T4 FREE 1.07 ng/dL (0.89-1.76); THYROID STIMULATING HORMONE 0.91 uIU/mL (0.55-4.78); TRIGLYCERIDE 134 mg/dL (0-150); UREA NITROGEN BLOOD 10 mg/dL (9-23)
[2023-04-11 08:00] LABS: CALCIUM 10.2 mg/dL (8.7-10.4); CARBON DIOXIDE 26 mEq/L (21-32); CHLORIDE 105 mEq/L (98-107); CREATININE 0.9 mg/dL (0.6-1.0); GLUCOSE 211 mg/dL (70-105); POTASSIUM 4.1 mEq/L (3.5-5.1); SODIUM 142 mEq/L (136-145); UREA NITROGEN BLOOD 10 mg/dL (9-23)
[2023-04-11 08:05] LABS: BASOPHILS % 0.5 % (0.0-2.0); DIFFERENTIAL COMMENT 0; EOSINOPHILS % 1.3 % (0.0-5.0); HEMATOCRIT. 43.9 % (36.0-48.0); HEMOGLOBIN. 14.3 g/dL (12.0-16.0); LYMPHOCYTES % 46.1 % (20.0-50.0); MEAN CORPUSCULAR HEMOGLOBIN 25.7 pg (28.0-32.0); MEAN CORPUSCULAR HGB CONC 32.6 g/dL (31.0-37.0); MEAN CORPUSCULAR VOLUME 78.9 fL (81.0-99.0); MEAN PLATELET VOLUME 10.1 fl (7.4-10.4); MONOCYTES % 10.9 % (2.0-8.0); NEUTROPHILS % 41.2 % (40.0-76.0); PLATELET 224 x1000/uL (130-400); RED BLOOD CELL COUNT 5.57 mill/uL (4.2-5.4); RED CELL DISTRIBUTION WIDTH 17.1 % (11.6-14.6); WHITE BLOOD COUNT 6.4 x1000/uL (4.5-11.0)
[2023-04-11] MEDS: CLOPIDOGREL 75MG TABLET PO SCH (09:00)
[2023-04-11] MEDS: LETROZOLE 2.5MG TABLET PO SCH (09:46)
[2023-04-11] MEDS: LOSARTAN 25 MG TABLET PO SCH ×2 (09:46→18:06)
[2023-04-11] MEDS: PANTOPRAZOLE SODIUM 40 MG/VIAL IV SCH (09:46)
[2023-04-11] MEDS: SOTALOL HCL 80MG TABLET PO SCH ×2 (09:46→18:06)
[2023-04-11] MEDS: AMLODIPINE 2.5MG TABLET PO SCH ×2 (09:47→22:00)
[2023-04-11] MEDS: ASPIRIN 81MG EC TABLET PO SCH (09:47)
[2023-04-11] MEDS: ENOXAPARIN 40MG/0.4ML SYR SUBCUT SCH (09:48)
[2023-04-11] MEDS: INSULIN LISPRO 100 UNITS/ML SUBCUT SCH ×4 (10:06→22:00)
[2023-04-11] MEDS ORDERED: GLYBURIDE 5MG TABLET PO SCH (13:00)
[2023-04-11] MEDS: GLIPIZIDE 10MG TABLET PO SCH (18:05)
[2023-04-11] MEDS: METFORMIN HCL 500MG TABLET PO SCH (18:06)
[2023-04-11] MEDS: ATORVASTATIN CALCIUM 20MG TABLET PO SCH (22:00)
[2023-04-11] MEDS ORDERED: INSULIN GLARGINE 100 UNITS/ML SUBCUT SCH (22:00)
[2023-04-12] VITALS: BP 147/57; PULSE 70; RESP 20; TEMP 97.7
[2023-04-12 04:00] VITALS: BP 147/57; PULSE 70; RESP 20; TEMP 97.7
[2023-04-12 06:57] LABS: DIFFERENTIAL COMMENT 0; EOSINOPHILS % 1.1 % (0.0-5.0); HEMATOCRIT. 42.7 % (36.0-48.0); HEMOGLOBIN. 13.9 g/dL (12.0-16.0); LYMPHOCYTES % 42.8 % (20.0-50.0); MEAN CORPUSCULAR HEMOGLOBIN 25.5 pg (28.0-32.0); MEAN CORPUSCULAR HGB CONC 32.5 g/dL (31.0-37.0); MEAN CORPUSCULAR VOLUME 78.5 fL (81.0-99.0); MEAN PLATELET VOLUME 9.7 fl (7.4-10.4); MONOCYTES % 9.9 % (2.0-8.0); NEUTROPHILS % 45.2 % (40.0-76.0); PLATELET 235 x1000/uL (130-400); RED BLOOD CELL COUNT 5.44 mill/uL (4.2-5.4); RED CELL DISTRIBUTION WIDTH 17.1 % (11.6-14.6); WHITE BLOOD COUNT 6.9 x1000/uL (4.5-11.0)
[2023-04-12 07:18] LABS: CALCIUM 10.7 mg/dL (8.7-10.4); CARBON DIOXIDE 26 mEq/L (21-32); CHLORIDE 106 mEq/L (98-107); CREATININE 0.8 mg/dL (0.6-1.0); GLUCOSE 157 mg/dL (70-105); PHOSPHORUS 3.1 mg/dL (2.5-4.9); POTASSIUM 4.3 mEq/L (3.5-5.1); SODIUM 140 mEq/L (136-145); UREA NITROGEN BLOOD 10 mg/dL (9-23)
[2023-04-12] MEDS: BLOOD SUGAR DIAGNOSTIC STRIP TEST SCH ×2 (07:48→12:16)
[2023-04-12 08:00] VITALS: BP 130/81; PULSE 76; RESP 18; TEMP 97.7
[2023-04-12] MEDS: PANTOPRAZOLE SODIUM 40 MG/VIAL IV SCH (08:58)
[2023-04-12] MEDS: LETROZOLE 2.5MG TABLET PO SCH (08:59)
[2023-04-12] MEDS: METFORMIN HCL 500MG TABLET PO SCH (08:59)
[2023-04-12] MEDS: CLOPIDOGREL 75MG TABLET PO SCH (08:59)
[2023-04-12] MEDS: LOSARTAN 25 MG TABLET PO SCH (08:59)
[2023-04-12] MEDS: AMLODIPINE 2.5MG TABLET PO SCH (08:59)
[2023-04-12] MEDS: SOTALOL HCL 80MG TABLET PO SCH (09:00)
[2023-04-12] MEDS: ENOXAPARIN 40MG/0.4ML SYR SUBCUT SCH (09:00)
[2023-04-12] MEDS: ASPIRIN 81MG EC TABLET PO SCH (09:00)
[2023-04-12] MEDS: INSULIN LISPRO 100 UNITS/ML SUBCUT SCH ×2 (09:16→12:49)
[2023-04-12] MEDS: GLIPIZIDE 10MG TABLET PO SCH (09:17)
[2023-04-12 12:00] VITALS: BP 115/75; PULSE 61; RESP 18; TEMP 97.9
[2023-04-12 14:26] VITALS: BP 115/75; PULSE 61; TEMP 97.9; O2SAT 100
[2023-04-12] MEDS: ACETAMINOPHEN 650MG/20.3ML UDC GT PRN ×2 (15:42→15:50)
[2023-04-12] MEDS ORDERED: NALOXONE HCL 0.4MG/ML VIAL IV PRN (16:00)
== END 2023-04-12 16:50 | disposition home health service (06) | DRG 638 ==
LOC: ER 15:36 → 6EST 19:13 → EDBEDREQ 19:18
PROVIDERS: ADMIT Hospitalist; ATTEND Hospitalist
DX: E11.65 Type 2 diabetes mellitus with hyperglycemia (principal); E87.1 Hypo-osmolality and hyponatremia; E11.22 Type 2 diabetes mellitus with diabetic chronic kidney disease; N18.30 Chronic kidney disease, stage 3 unspecified; E78.5 Hyperlipidemia, unspecified; I12.9 Hypertensive chronic kidney disease with stage 1 through stage 4 chronic kidney disease, or unspecified chronic kidney disease; I25.10 Atherosclerotic heart disease of native coronary artery without angina pectoris; I48.0 Paroxysmal atrial fibrillation; I25.2 Old myocardial infarction; Z79.02 Long term (current) use of antithrombotics/antiplatelets; Z79.4 Long term (current) use of insulin; Z79.82 Long term (current) use of aspirin; Z79.84 Long term (current) use of oral hypoglycemic drugs; Z79.899 Other long term (current) drug therapy; Z85.3 Personal history of malignant neoplasm of breast; Z86.73 Personal history of transient ischemic attack (TIA), and cerebral infarction without residual deficits; Z90.11 Acquired absence of right breast and nipple; Z95.5 Presence of coronary angioplasty implant and graft; Z88.0 Allergy status to penicillin; Z82.49 Family history of ischemic heart disease and other diseases of the circulatory system
CPT/HCPCS: 36415; 80048; 80053; 80061; 82330; 82962; 83036; 83970; 84100; 84439; 84443; 85025; 93005; 93306; 93970; 97162; 97166; 99285; C9113; J1650; J1815

== ENCOUNTER 2023-12-19 06:32 | Inpatient (IN) | payer MEDICARE, MEDICAID ==
[~2023-12-19] VITALS: Ht 170.2 cm; Wt 92.1 kg
[~2023-12-19 06:32] MED LIST changes: +ATOR20TA65 MT; -FERR325T30 PO; -GLIM1TAB PO; -HYDR-4134 PO; +HYDR25TA78 PO; +LETR2.5T7 MT; -SITA1TAB6 MT; +SOTA80TA MT; -TRAM50TA3 PO
[2023-12-19] MEDS ORDERED: GLIM1TAB PO (07:37)
[2023-12-19] MEDS: SODIUM CHLORIDE 0.45% 500 ML IV ONE (07:54)
[2023-12-19] MEDS ORDERED: LIDOCAINE HCL 1% 20ML VIAL ONE ×2 (08:00→09:11)
[2023-12-19] MEDS ORDERED: HEPARIN 1000 UNITS/ML 10ML ONE (08:00)
[2023-12-19] MEDS ORDERED: IODIXANOL 320MG/ML 100 ML BOTTLE IV ONE ×2 (08:01→09:54)
[2023-12-19] MEDS ORDERED: METO25TA6 PO (08:15)
[2023-12-19] MEDS ORDERED: FERR325T6 PO (08:15)
[2023-12-19] MEDS ORDERED: SITA100T11 PO (08:15)
[2023-12-19] MEDS ORDERED: CHOL500010 PO (08:24)
[2023-12-19] MEDS ORDERED: FENTANYL CITRATE/PF 50MCG/ML 2ML VIAL ONE (08:47)
[2023-12-19] MEDS ORDERED: MIDAZOLAM HCL 2 MG/2 ML VIAL ONE ×2 (08:47→09:10)
[2023-12-19] MEDS ORDERED: ASPIRIN 325MG TABLET ONE (10:04)
[2023-12-19] MEDS ORDERED: CLOPIDOGREL 75MG TABLET ONE (10:05)
[2023-12-19 10:30] VITALS: BP 154/73; PULSE 55; PULSE 61; RESP 12; TEMP 36.72516; TEMP 36.7516; O2SAT 98
[2023-12-19] MEDS ORDERED: ONDANSETRON HCL 4MG/2ML INJ IV PRN (10:30)
[2023-12-19] MEDS ORDERED: ACETAMINOPHEN 325MG TABLET PO PRN (10:30)
[2023-12-19] MEDS ORDERED: ATROPINE SULFATE 1MG/10ML SYR IV PRN (10:30)
[2023-12-19] MEDS ORDERED: DEXTROSE 50% WATER 50ML SYRINGE IV PRN (11:45)
[2023-12-19] MEDS: BLOOD SUGAR DIAGNOSTIC STRIP TEST SCH (11:50)
[2023-12-19 12:00] VITALS: BP 151/81; PULSE 40; RESP 11; TEMP 36.89184; O2SAT 98
[2023-12-19] MEDS: INSULIN LISPRO 100 UNITS/ML SUBCUT SCH (12:20)
[2023-12-19] MEDS ORDERED: HYDRALAZINE HCL 25MG TABLET PO PRN (15:00)
[2023-12-19 16:00] VITALS: BP 120/41; PULSE 70; RESP 19; TEMP 36.78072; O2SAT 100
[2023-12-19 20:07] VITALS: BP 138/62; PULSE 53; RESP 16; TEMP 36.44736; O2SAT 100
[2023-12-19] MEDS: AMLODIPINE 2.5MG TABLET PO SCH (20:38)
[2023-12-19] MEDS: ATORVASTATIN CALCIUM 20MG TABLET PO SCH (20:38)
[2023-12-19 22:10] LABS: BASOPHILS % 0.8 % (0.0-2.0); DIFFERENTIAL COMMENT 0; EOSINOPHILS % 1.9 % (0.0-5.0); HEMATOCRIT. 42.3 % (36.0-48.0); HEMOGLOBIN. 13.7 g/dL (12.0-16.0); LYMPHOCYTES % 28.3 % (20.0-50.0); MEAN CORPUSCULAR HGB CONC 32.3 g/dL (31.0-37.0); MEAN CORPUSCULAR VOLUME 77.3 fL (81.0-99.0); MEAN PLATELET VOLUME 8.9 fl (7.4-10.4); MONOCYTES % 10.8 % (2.0-8.0); NEUTROPHILS % 58.2 % (40.0-76.0); PLATELET 316 x1000/uL (130-400); RED BLOOD CELL COUNT 5.48 mill/uL (4.2-5.4); RED CELL DISTRIBUTION WIDTH 18.8 % (11.6-14.6); WHITE BLOOD COUNT 6.8 x1000/uL (4.5-11.0)
[2023-12-19 22:24] LABS: CALCIUM 10.4 mg/dL (8.7-10.4); CARBON DIOXIDE 24 mEq/L (21-32); CHLORIDE 108 mEq/L (98-107); SODIUM 139 mEq/L (136-145)
[2023-12-19 22:29] LABS: CREATININE 0.8 mg/dL (0.6-1.0); GLUCOSE 116 mg/dL (70-105); UREA NITROGEN BLOOD 12 mg/dL (9-23)
[2023-12-20 00:50] VITALS: BP 117/53; PULSE 58; RESP 20; TEMP 36.83628; O2SAT 98
[2023-12-20 05:12] VITALS: BP 124/64; PULSE 56; RESP 14; TEMP 36.44736; O2SAT 99
[2023-12-20 07:25] LABS: BASOPHILS % 0.6 % (0.0-2.0); CHLORIDE 110 mEq/L (98-107); DIFFERENTIAL COMMENT 0; EOSINOPHILS % 1.9 % (0.0-5.0); HEMATOCRIT. 45.7 % (36.0-48.0); HEMOGLOBIN. 14.4 g/dL (12.0-16.0); LYMPHOCYTES % 25.5 % (20.0-50.0); MEAN CORPUSCULAR HGB CONC 31.5 g/dL (31.0-37.0); MEAN CORPUSCULAR VOLUME 79.3 fL (81.0-99.0); MEAN PLATELET VOLUME 8.9 fl (7.4-10.4); MONOCYTES % 11.5 % (2.0-8.0); NEUTROPHILS % 60.5 % (40.0-76.0); PLATELET 326 x1000/uL (130-400); POTASSIUM 5.1 mEq/L (3.5-5.1); RED BLOOD CELL COUNT 5.76 mill/uL (4.2-5.4); RED CELL DISTRIBUTION WIDTH 19.1 % (11.6-14.6); SODIUM 142 mEq/L (136-145); WHITE BLOOD COUNT 6.4 x1000/uL (4.5-11.0)
[2023-12-20 07:26] LABS: CALCIUM 11.1 mg/dL (8.7-10.4); CARBON DIOXIDE 28 mEq/L (21-32)
[2023-12-20 07:31] LABS: CREATININE 0.9 mg/dL (0.6-1.0); GLUCOSE 160 mg/dL (70-105); UREA NITROGEN BLOOD 10 mg/dL (9-23)
[2023-12-20 08:00] VITALS: BP 122/64; PULSE 58; RESP 16; TEMP 36.89184; O2SAT 98
[2023-12-20] MEDS ORDERED: ASPIRIN 325MG TABLET PO SCH (09:00)
[2023-12-20] MEDS ORDERED: CLOPIDOGREL 75MG TABLET PO SCH (09:00)
[2023-12-20] MEDS ORDERED: ASPIRIN 81MG EC TABLET PO SCH (09:00)
[2023-12-20] MEDS: LETROZOLE 2.5MG TABLET PO SCH (09:02)
[2023-12-20] MEDS: GLYBURIDE 5MG TABLET PO SCH (09:02)
[2023-12-20] MEDS: METFORMIN HCL 500MG TABLET PO SCH (09:03)
[2023-12-20] MEDS: LOSARTAN 25 MG TABLET PO SCH (09:03)
[2023-12-20] MEDS: ASPIRIN 81MG TABLET PO SCH (09:03)
[2023-12-20] MEDS: CLOPIDOGREL 75MG TABLET PO SCH (09:03)
[2023-12-20 10:23] VITALS: BP 138/76; PULSE 62; TEMP 98.5; O2SAT 98
[2023-12-20] MEDS ORDERED: LOSA25TA26 PO (10:53)
== END 2023-12-20 11:05 | disposition home health service (06) | DRG 254 ==
LOC: OR 06:32 → 3WST 11:26
PROVIDERS: ADMIT Specialist; ATTEND Specialist
PROC: X27 New Technology, Cardiovascular System, Dilation (ICD-10-PCS; principal; 2023-12-19)
PROC: B41FYZZ Fluoroscopy of Right Lower Extremity Arteries using Other Contrast (ICD-10-PCS; 2023-12-19)
PROC: 047L3ZZ Dilation of Left Femoral Artery, Percutaneous Approach (ICD-10-PCS; 2023-12-19)
DX: I74.3 Embolism and thrombosis of arteries of the lower extremities (principal); E11.51 Type 2 diabetes mellitus with diabetic peripheral angiopathy without gangrene; E66.9 Obesity, unspecified; E78.5 Hyperlipidemia, unspecified; I10 Essential (primary) hypertension; I25.10 Atherosclerotic heart disease of native coronary artery without angina pectoris; Z68.31 Body mass index [BMI] 31.0-31.9, adult; I25.2 Old myocardial infarction; Z79.02 Long term (current) use of antithrombotics/antiplatelets; Z79.82 Long term (current) use of aspirin; Z79.84 Long term (current) use of oral hypoglycemic drugs; Z79.899 Other long term (current) drug therapy; Z82.49 Family history of ischemic heart disease and other diseases of the circulatory system; Z85.3 Personal history of malignant neoplasm of breast; Z86.73 Personal history of transient ischemic attack (TIA), and cerebral infarction without residual deficits; Z87.11 Personal history of peptic ulcer disease; Z88.0 Allergy status to penicillin; Z90.11 Acquired absence of right breast and nipple
CPT/HCPCS: 36415; 37226; 37230; 75710; 80048; 82962; 85025; 85347; C1725; C1760; C1769; C1874; C1893; C1894; J1644; J2250; J3010; J3490; Q9967

== ENCOUNTER → 2024-02-06 | Outpatient (CLI) | payer MEDICARE, MEDICAID ==
[~2024-02-06] MED LIST changes: +CHOL500010 PO; +FERR325T6 PO; +GLIM1TAB55 PO; -GLYB5TAB7 PO; -LOSA-412 PO; +LOSA25TA26 PO; +METO25TA6 PO; +SITA100T11 PO
== END | disposition home or self-care (01) ==
LOC: RAD 10:27
PROVIDERS: ATTEND Internal Medicine Hematology & Oncology
DX: C50.411 Malignant neoplasm of upper-outer quadrant of right female breast (principal); R92.1 Mammographic calcification found on diagnostic imaging of breast
CPT/HCPCS: 77062; 77065; G0279

== ENCOUNTER 2024-12-02 14:05 | Emergency (ER) | payer MEDICARE, MEDICAID ==
[~2024-12-02] VITALS: Ht 170.2 cm; Wt 91.0 kg
[2024-12-02 14:12] VITALS: O2SAT 99
[2024-12-02 16:30] VITALS: TEMP 36.9
[2024-12-02 17:30] LABS: BASOPHILS % 0.9 % (0.0-2.0); EOSINOPHILS % 1.6 % (0.0-5.0); HEMATOCRIT. 46.1 % (36.0-48.0); HEMOGLOBIN. 14.6 g/dL (12.0-16.0); LYMPHOCYTES % 20.3 % (20.0-50.0); MEAN PLATELET VOLUME 9.2 fl (7.4-10.4); MONOCYTES % 12.0 % (2.0-8.0); NEUTROPHILS % 65.2 % (40.0-76.0); PLATELET 741 x1000/uL (130-400); RED BLOOD CELL COUNT 6.07 mill/uL (4.2-5.4); RED CELL DISTRIBUTION WIDTH 18.1 % (11.6-14.6)
[2024-12-02 17:42] LABS: CREATININE 0.9 mg/dL (0.6-1.0); UREA NITROGEN BLOOD 20 mg/dL (9-23)
[2024-12-02 17:44] LABS: INR 1.0
[2024-12-02] MEDS: KETOROLAC 30MG/ML VIAL IV ONE (18:57)
[2024-12-02] MEDS ORDERED: IBUP-2029 MT (20:23)
[2024-12-02] MEDS ORDERED: CYCL10TA21 MT (20:23)
[2024-12-02] MEDS ORDERED: LIDO700A30 TP (20:23)
[2024-12-02 20:50] VITALS: BP 139/81; PULSE 86; RESP 13; O2SAT 97
== END 2024-12-02 21:12 | disposition home or self-care (01) ==
LOC: ER 14:05 → CMPBEDREQ 12-03 07:34
DX: S70.01XA Contusion of right hip, initial encounter (principal); E11.9 Type 2 diabetes mellitus without complications; I25.2 Old myocardial infarction; Z79.899 Other long term (current) drug therapy; Z88.0 Allergy status to penicillin; X58.XXXA Exposure to other specified factors, initial encounter; Y93.89 Activity, other specified; Y92.89 Other specified places as the place of occurrence of the external cause; Y99.8 Other external cause status
CPT/HCPCS: 99285; 96374; 71045; 80048; 85025; 85610; 85730; 86850; 86900; 86901; 36415; 73502; 73552; J1885; 99284; A4606